=== PATIENT | male | born 1950 | race Caucasian/White ===

== ENCOUNTER → 2021-05-28 | Day surgery (SDC) | payer MEDICARE, OTHER ==
[~2021-05-28] MED LIST: FLOMAX 0.4 MG0.4 MG PO; GABAPENTIN400 MG PO; GLUCOPHAGE 500500 MG PO; HYDROCODON-ACE1 EAC6 PO; METOPROLOL TART50 MG PO; ROPINIROLE HCL3 MG PO; TRULICITY1.5 MG/0.5 SQ; ZESTORETIC 20-1 EAC1 PO
== END | disposition home or self-care (01) ==
LOC: OR 07:30
DX: N42.89 Other specified disorders of prostate (principal); N41.1 Chronic prostatitis; R97.20 Elevated prostate specific antigen [PSA]; N40.1 Benign prostatic hyperplasia with lower urinary tract symptoms; R35.0 Frequency of micturition; R39.14 Feeling of incomplete bladder emptying; R39.16 Straining to void; R39.12 Poor urinary stream; Z79.84 Long term (current) use of oral hypoglycemic drugs; Z79.899 Other long term (current) drug therapy; Z20.822 Contact with and (suspected) exposure to COVID-19; Z96.659 Presence of unspecified artificial knee joint; Z98.52 Vasectomy status
CPT/HCPCS: J7040; J7120